=== PATIENT | female | born 1990 | race Asian ===

== ENCOUNTER 2018-03-24 00:04 | Emergency (ER) | payer MEDICAID ==
[~2018-03-24] VITALS: Ht 157.5 cm; Wt 69.9 kg
[~2018-03-24 00:04] MED LIST: IBUPROFEN600 MG ORAL; NITROFURANTOIN100 M2 ORAL
--- NOTE | 2018-03-24 00:15 | NUR ---
ED Nurse Note: Patient walked into Ed c/o of vaginal burning, patient states that she shaved her pubic area on the and has been feeling a burning sensation since then, patient rates her pain a 8/10 constant pain
[2018-03-24 00:23] VITALS: BP 115/76
--- NOTE | 2018-03-24 00:33 | Emergency Room Report ---
History of Present Illness General Chief Complaint: Female Urogenital Problems Source: Patient Present Illness HPI The patient presents with dysuria, discomfort and bumps in her genital region after shaving. She also has a slight discharge. She's taking Tylenol and it hasn't helped pain very much. She rates the pain 8/10 at this time. The bumps began about a week ago. She has been spraying on a topical skin medication which also has not helped. LNMP November. The patient had a miscarriage earlier this month. The bleeding has stopped. She's not been checked by her MEDICAL DERMATOLOGIST. Her regular physician did check her and said that she was okay at that time. She states she had tests done for STD but doesn't believe tests were done for Herpes. No fevers, chills, back pain, joint pain, NVD, change in bowels, chest pain. 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 Now: No Reviewed Nursing Documentation: PMH: Agreed; PSxH: Agreed Nursing Documentation-PMH Past Medical History: No Stated History Review of Systems All Other Systems: negative except mentioned in HPI Physical Exam Vital Signs Date Time Temp Pulse Resp B/P (MAP) Pulse Ox O2 Delivery O2 Flow Rate FiO2 03/24/18 00:12 98.8 77 12 117/79 100 Room Air Sp02 EP Interpretation: reviewed, normal General Appearance: well appearing, no apparent distress, GCS 15 Head: normocephalic Eyes: bilateral eye normal inspection, bilateral eye PERRL ENT: moist mucus membranes Neck: supple Respiratory: lungs clear, normal breath sounds Cardiovascular #1: regular rate, rhythm Cardiovascular #2: 2+ radial (R) Gastrointestinal: normal inspection, normal bowel sounds, non tender, no mass, non-distended Genitourinary: no CVA tenderness, other - lesions - ulcerations which are tender - not follicular - extending beyong the areas of shaving - perineal area Musculoskeletal: back normal, gait/station normal, normal range of motion Neurologic: alert, oriented x3, grossly normal Psychiatric: mood/affect normal Skin: warm/dry, other - see genital exam Medical Decision Making Diagnostic Impression: Primary Impression: Herpes simplex Additional Impression: UTI (urinary tract infection) Qualified Codes: N30.00 - Acute cystitis without hematuria ER Course Patient presents with painful skin lesions in the genital region dysuria. Differential includes folliculitis, herpes, Bartholin's cyst amongst others. Based on exam is most consistent with herpes. This is her initial presentation - antivirals are indicated even though it's been going on for several days. We need to exclude and check for UTI also. Urinalysis with pyuria. test negative. Findings discussed with patient and started on acyclovir and Macrobid here. She is also given Tylenol for pain. Treatment plan discussed with patient with need to follow up with MEDICAL DERMATOLOGIST. Patient is improved and stable for outpatient observation and treatment. Laboratory Tests Test 03/24/18 00:40 Urine Color Pale yellow Urine Appearance Clear Urine pH 6 (4.5-8.0) Urine Specific [place] 1.015 (1.005-1.035) Urine Protein Negative (NEGATIVE) Urine Glucose (UA) Negative (NEGATIVE) Urine Ketones Negative (NEGATIVE) Urine Blood 1+ (NEGATIVE) H Urine Nitrite Positive (NEGATIVE) H Urine Bilirubin Negative (NEGATIVE) Urine Urobilinogen Normal MG/DL (0.0-1.0) Urine Leukocyte Esterase 2+ (NEGATIVE) H Urine RBC 2-4 /HPF (0 - 2) H Urine WBC 10-15 /HPF (0 - 2) H Urine Squamous Epithelial Cells Few /LPF (NONE/OCC) Urine Bacteria Few /HPF (NONE) Urine HCG, Qualitative Negative (NEGATIVE) Microbiology Date/Time Source Procedure Growth Status 03/24/18 00:40 Vaginal Wet Prep - Final Complete Last Vital Signs Date Time Temp Pulse Resp B/P (MAP) Pulse Ox O2 Delivery O2 Flow Rate FiO2 03/24/18 02:14 98.8 80 12 120/72 100 Room Air Status: improved Disposition: HOME, SELF-CARE Condition: Improved Scripts Nitrofurantoin Monohyd/M-Cryst* (MACROBID 100 MG*) 100 Mg Capsule 100 MG ORAL EVERY 12 HOURS, #14 CAP Prov: Liam Vazquez MD 03/24/18 Ibuprofen* (MOTRIN*) 600 Mg Tablet 600 MG ORAL Q6H PRN for For Pain, #16 TAB Prov: Liam Vazquez MD 03/24/18 Tramadol Hcl* (ULTRAM*) 50 Mg Tablet 50 MG ORAL Q6H PRN for For Pain, #10 TAB 0 Refills Prov: Liam Vazquez MD 03/24/18 Valacyclovir Hcl* (VALTREX*) 500 Mg Tablet 1000 MG ORAL TWICE A DAY, #14 TAB Prov: Liam Vazquez MD 03/24/18 Bacitracin (Bacitracin) 28.4 Gm Oint...g. 1 APPLIC TOPIC BID, #20 GM Prov: Liam Vazquez MD 03/24/18 Liam Vazquez MD Mar 24, 2018 00:33
[2018-03-24 00:52] LABS: APPEARANCE,URINE CLEAR; BILIRUBIN, URINE NEGATIVE (NEGATIVE); COLOR,URINE PALE YELLOW; GLUCOSE, URINE (UA) NEGATIVE (NEGATIVE); KETONES,URINE NEGATIVE (NEGATIVE); NITRITE,URINE POSITIVE (NEGATIVE); PH,URINE 6 (4.5-8.0); PROTEIN,URINE NEGATIVE (NEGATIVE); UROBILINOGEN,URINE NORMAL MG/DL (0.0-1.0)
[2018-03-24 01:03] LABS: LEUKOCYTE ESTERASE ,URINE 2+ (NEGATIVE)
[2018-03-24] MEDS ORDERED: IBUPROFEN600 MG ORAL (01:59)
[2018-03-24] MEDS ORDERED: TRAMADOL HCL50 MG ORAL (01:59)
[2018-03-24] MEDS ORDERED: NITROFURANTOIN100 M2 ORAL (01:59)
[2018-03-24] MEDS ORDERED: VALACYCLOVIR500 MG ORAL (01:59)
[2018-03-24] MEDS ORDERED: BACITRACIN15 GM TOPIC (01:59)
[2018-03-24 02:14] VITALS: BP 120/72
--- NOTE | 2018-03-24 02:15 | NUR ---
ED Nurse Note: Pt cleared DC by Dr. Vazquez. Pt is A/Ox4, VSS, DC instruction and prescriptions given, pt verbalized understanding. ID wristband removed. All belongings given to pt. Pt ambulated out of ER with steady gait.
== END 2018-03-24 02:15 | disposition home or self-care (01) ==
LOC: EMR 00:38
DX: B00.9 Herpesviral infection, unspecified (principal); N39.0 Urinary tract infection, site not specified
CPT/HCPCS: 81003; 81025; 87086; 87181; 87210; 99283

== ENCOUNTER 2020-01-06 04:38 | Emergency (ER) | payer SELFPAY ==
[~2020-01-06] VITALS: Ht 157.5 cm; Wt 72.6 kg
[~2020-01-06 04:38] MED LIST changes: +BACITRACIN15 GM TOPIC; +TRAMADOL HCL50 MG ORAL; +VALACYCLOVIR500 MG ORAL
--- NOTE | 2020-01-06 04:58 | NUR ---
ED Nurse Note: Patient walked into the ED with c/o neck pain that radiates to the right side of the arm onset 4 days ago. Pt stated this happens often but it was worse today. Pt is taking pain meds but with no relief recently. Pt denies injury or trauma, no fever/chills, N&V.
[2020-01-06 04:59] VITALS: BP 124/78
--- NOTE | 2020-01-06 05:00 | NUR ---
ED Nurse Note: ERMD at bedside
[2020-01-06] MEDS ORDERED: Ketorolac 60mg Inj IM ONE (05:15)
[2020-01-06] MEDS ORDERED: IBUPROFEN600 M1 ORAL (05:24)
[2020-01-06] MEDS ORDERED: HYDROCODON-ACE1 EA15 ORAL (05:24)
[2020-01-06] MEDS ORDERED: PREDNISONE20 MG ORAL (05:24)
--- NOTE | 2020-01-06 05:25 | Emergency Room Report ---
History of Present Illness General Chief Complaint: Neck Pain Source: Patient Present Illness HPI This is a 29-year-old female with no past medical history patient presents with complaint of neck pain and arm pain. Onset for last 4 days. Pain is to the right side of her neck rating down her right arm. Worse when she bent her neck back. No trauma. No fever or chills. No focal deficit. Pain is sharp in n ature. Pain is 8 out of 10. Allergies: Coded Allergies: No Known Allergies (Unverified , 01/02/16) COVID-19 Screening Contact w/high risk pt: No Experienced COVID-19 symptoms?: No COVID-19 Testing performed [employer]: No Patient History Past Medical History: see triage record, old chart reviewed Past Surgical History: none Pertinent Family History: none Social History: Denies: smoking Now: No Immunizations: other Reviewed Nursing Documentation: PMH: Agreed; PSxH: Agreed Nursing Documentation-PMH Past Medical History: No Stated History Review of Systems Eye: Denies: eye pain, blurred vision ENT: Denies: ear pain, nose congestion, throat swelling Respiratory: Denies: cough, shortness of breath Cardiovascular: Denies: chest pain, palpitations Gastrointestinal: Denies: abdominal pain, diarrhea, nausea, vomiting Musculoskeletal: Denies: back pain, joint pain Skin: Denies: rash Neurological: Denies: headache, numbness Endocrine: Denies: increased thirst, increased urine Hematologic/Lymphatic: Denies: easy bruising All Other Systems: negative except mentioned in HPI Physical Exam Vital Signs Date Time Temp Pulse Resp B/P (MAP) Pulse Ox O2 Delivery O2 Flow Rate FiO2 01/06/20 04:43 98.2 90 20 124/78 (93) 98 Room Air Vitals normal Sp02 EP Interpretation: reviewed, normal General Appearance: well appearing, no apparent distress, alert Head: normocephalic, atraumatic Eyes: bilateral eye PERRL, bilateral eye EOMI ENT: hearing grossly normal, normal pharynx Neck: full range of motion, supple, no meningismus Respiratory: chest non-tender, lungs clear, normal breath sounds Cardiovascular #1: regular rate, rhythm, no murmur Gastrointestinal: normal bowel sounds, non tender, no mass, no organomegaly, no bruit, non-distended Musculoskeletal: back normal, normal range of motion, gait/station normal Psychiatric: mood/affect normal Medical Decision Making Diagnostic Impression: Primary Impression: Cervical radiculopathy, acute ER Course This patient presents with cervical radiculopathy. Most of her pain is to the fourth and fifth finger. No evidence of cauda equina syndrome, spinal epidural abscess or neoplastic process. No trauma to warrant x-ray or CT scan. Last Vital Signs Date Time Temp Pulse Resp B/P (MAP) Pulse Ox O2 Delivery O2 Flow Rate FiO2 01/06/20 04:59 98.2 20 124/78 98 Room Air 01/06/20 04:43 90 Status: improved Disposition: HOME, SELF-CARE Condition: Stable Scripts Prednisone* (PREDNISONE*) 20 Mg Tablet 40 MG ORAL DAILY, #10 TAB Prov: Diego Sampson MD 01/06/20 Ibuprofen* (MOTRIN*) 600 Mg Tablet 600 MG ORAL Q6H PRN for For Pain, #30 TAB 0 Refills Prov: Diego Sampson MD 01/06/20 Hydrocodone/Acetaminophen 5-325* (HYDROCODONE/ACETAMINOPHEN 5-325*) 1 Each Tablet 1 TAB ORAL Q6H PRN for For Pain, #15 TAB 0 Refills Prov: Diego Sampson MD 01/06/20 Additional Instructions: Follow-up with your doctor in 1 to 2 weeks. You may need an MRI of your neck. Return if symptoms worsen. Diego Sampson MD Jan 06, 2020 05:25
--- NOTE | 2020-01-06 05:30 | NUR ---
ER DISCHARGE NOTE: Patient is cleared to be discharged per ERMD, pt is aox4, on room air, with stable vital signs. pt was given dc and prescription instructions, pt was able to verbalize understanding, pt id band removed. pt is able to ambulate with steady gait. pt took all belongings.
[2020-01-06 05:41] VITALS: BP 124/78
== END 2020-01-06 05:42 | disposition home or self-care (01) ==
LOC: EMR 05:25
DX: M54.12 Radiculopathy, cervical region (principal)
CPT/HCPCS: 96372; 99282